=== PATIENT | female | born 2000 | race Two or more races ===

== ENCOUNTER 2025-01-25 11:12 | Emergency (ER) | payer OTHER ==
[~2025-01-25] VITALS: Ht 157.5 cm; Wt 82.3 kg
[2025-01-25] MEDS: NS (Normal Saline) 0.9% 1,000 ML IV ONE (12:43)
[2025-01-25 12:54] LABS: BASO # 0.1 10^3/uL (0.0-0.2); BASO % 0.6 % (0.0-1.0); EOS # 0.1 10^3/uL (0.0-0.5); EOS % 1.1 % (0.0-3.0); LYMPH # 1.9 10^3/uL (1.5-5.0); LYMPH % 21.0 % (24.0-44.0); MONO # 0.8 10^3/uL (0.0-0.8); MONO % 8.6 % (2.0-8.0); NEUTROPHILS # 6.0 10^3/uL (1.5-8.5); NEUTROPHILS % 68.2 % (36.0-66.0); PLATELET COUNT, AUTOMATED 487 10^3/uL (150-450)
[2025-01-25 13:20] LABS: ALT/SGPT 60 U/L (7.0-40); AST/SGOT 27 U/L (<34); CALCIUM LEVEL 8.7 MG/DL (8.5-10.1); CARBON DIOXIDE LEVEL 24 MMOL/L (20-31); CHLORIDE LEVEL 103 MMOL/L (98-107); CK-MB VALUE MASS < 1.0 NG/ML (<3.6); CREATININE FOR GFR 0.44 MG/DL (0.55-1.30); GLOMERULAR FILTRATION RATE > 90.0 (>60); MAGNESIUM LEVEL 1.7 MG/DL (1.8-2.4); POTASSIUM SERUM 4.2 MMOL/L (3.5-5.1); SODIUM LEVEL 137 MMOL/L (136-145)
[2025-01-25 13:21] LABS: FREE T4 1.22 NG/DL (0.89-1.76)
[2025-01-25 13:37] LABS: CPK CREATINE PHOSPHOKINASE 53 U/L (34-145)
[2025-01-25 13:56] LABS: ACETONE/KETONE 0.10 MMOL/L (0.02-0.27)
[2025-01-25 14:05] LABS: ESTIMATED AVERAGE GLUCOSE 189.0 MG/DL (60-110)
[2025-01-25 14:05] LABS: KETONE, URINE AUTO RFX 1+ mg/dL (NEGATIVE); LEUKOCYTE ESTERASE UR AUTO RFX NEGATIVE (NEGATIVE); MUCUS, URINE RFX SMALL (NEGATIVE); NITRITE, URINE AUTO RFX NEGATIVE (NEGATIVE); RBC, URINE AUTO RFX 0 /HPF (0-3); SQUAM EPITHELIAL CELL UR AURFX 9 /HPF (0-6); WBC, URINE AUTO RFX 0 /HPF (0-3)
[2025-01-25 14:30] LABS: CK-MB VALUE MASS < 1.0 NG/ML (<3.6)
[2025-01-25 14:33] LABS: CPK CREATINE PHOSPHOKINASE 55 U/L (34-145)
[2025-01-25 15:15] VITALS: BP 120/63; O2SAT 98
[2025-01-25 15:29] VITALS: TEMP 97.6
== END 2025-01-25 15:30 | disposition home or self-care (01) ==
LOC: M ED 11:12
DX: E10.65 Type 1 diabetes mellitus with hyperglycemia (principal); R07.9 Chest pain, unspecified; Z79.4 Long term (current) use of insulin

== ENCOUNTER → 2025-01-29 | Outpatient (CLI) | payer OTHER ==
[2025-01-29 16:09] LABS: TOTAL PROTEIN,RANDOM URINE 18.4 MG/DL (0.0-14.0)
[2025-01-29 16:39] LABS: Trichomonas vaginalis (AMP) NOT DETECTED (NEGATIVE)
[2025-01-29 17:02] LABS: GC DNA AMPLIFICATION NEGATIVE (NEGATIVE)
[2025-01-29 18:10] LABS: BASO # 0.1 10^3/uL (0.0-0.2); BASO % 0.7 % (0.0-1.0); EOS # 0.1 10^3/uL (0.0-0.5); EOS % 0.8 % (0.0-3.0); LYMPH # 2.0 10^3/uL (1.5-5.0); LYMPH % 19.4 % (24.0-44.0); MONO # 0.9 10^3/uL (0.0-0.8); MONO % 8.3 % (2.0-8.0); NEUTROPHILS # 7.2 10^3/uL (1.5-8.5); NEUTROPHILS % 70.1 % (36.0-66.0); PLATELET COUNT, AUTOMATED 556 10^3/uL (150-450)
[2025-01-29 18:35] LABS: ESTIMATED AVERAGE GLUCOSE 186.0 MG/DL (60-110)
[2025-01-29 18:44] LABS: LDH LACTATE DEHYDROGENASE 175 U/L (120-246)
[2025-01-29 18:46] LABS: ALT/SGPT 58 U/L (7.0-40); AST/SGOT 35 U/L (<34); CALCIUM LEVEL 9.2 MG/DL (8.5-10.1); CARBON DIOXIDE LEVEL 24 MMOL/L (20-31); CHLORIDE LEVEL 102 MMOL/L (98-107); CHOLESTEROL LEVEL 185 MG/DL (<200); CHOLESTEROL RISK RATIO 3.02 (<5); CREATININE FOR GFR 0.47 MG/DL (0.55-1.30); GLOMERULAR FILTRATION RATE > 90.0 (>60); LDL CHOLESTEROL 99.0 MG/DL (<100); NON-HDL-C 123.8 MG/DL; POTASSIUM SERUM 4.4 MMOL/L (3.5-5.1); SODIUM LEVEL 138 MMOL/L (136-145); T UPTAKE 24.3 % (22.5-37.0); THYROXINE (T4) 9.9 UG/DL (4.5-10.9); TRIGLYCERIDES LEVEL 124 MG/DL (<150)
[2025-01-29 19:17] LABS: HIV 1&2 SCREEN NEGATIVE (NEGATIVE)
[2025-01-29 19:25] LABS: HEPATITIS C VIRUS ABY INDEX < 0.02 INDEX (<0.8)
== END ==
LOC: M PLALAB 14:46
PROVIDERS: ATTEND Obstetrics & Gynecology
DX: O24.011 Pre-existing type 1 diabetes mellitus, in pregnancy, first trimester (principal); Z3A.00 Weeks of gestation of pregnancy not specified; Z13.79 Encounter for other screening for genetic and chromosomal anomalies; Z83.3 Family history of diabetes mellitus

== ENCOUNTER → 2025-02-20 | Outpatient (CLI) | payer OTHER ==
[2025-02-20 13:47] LABS: CALCIUM LEVEL 9.1 MG/DL (8.5-10.1); CARBON DIOXIDE LEVEL 25 MMOL/L (20-31); CHLORIDE LEVEL 102 MMOL/L (98-107); CREATININE FOR GFR 0.48 MG/DL (0.55-1.30); GLOMERULAR FILTRATION RATE > 90.0 (>60); POTASSIUM SERUM 4.1 MMOL/L (3.5-5.1); SODIUM LEVEL 136 MMOL/L (136-145)
[2025-02-20 13:49] LABS: PLATELET COUNT, AUTOMATED 546 10^3/uL (150-450)
[2025-02-20 13:50] LABS: THYROXINE (T4) 12.0 UG/DL (4.5-10.9)
== END ==
LOC: M PLALAB 11:15
PROVIDERS: ATTEND Obstetrics & Gynecology
DX: Z34.81 Encounter for supervision of other normal pregnancy, first trimester (principal); Z3A.01 Less than 8 weeks gestation of pregnancy; Z98.891 History of uterine scar from previous surgery; Z13.79 Encounter for other screening for genetic and chromosomal anomalies; Z83.3 Family history of diabetes mellitus; Z13.71 Encounter for nonprocreative screening for genetic disease carrier status

== ENCOUNTER → 2025-02-26 | Outpatient (CLI) | payer OTHER | LOC: M CARPUL 11:55 | PROVIDERS: ATTEND Internal Medicine Cardiovascular Disease | DX: R06.02 Shortness of breath (principal) ==